=== PATIENT | male | born 2000 | race Caucasian/White ===

== ENCOUNTER → 2018-02-28 | Outpatient (CLI) | payer BC ==
[2018-02-28 09:33] LABS: ALBUMIN 3.7 g/dL (3.4-5.0); ANION GAP 5 mmol/L (5-15); CALCIUM 8.3 mg/dL (8.5-10.1); CHLORIDE 106 mmol/L (98-107)
[2018-02-28 09:41] LABS: MEAN CORPUSCULAR HEMOGLOBIN 16.3 pg (27.5-34.5); MEAN CORPUSCULAR VOLUME 56.3 fL (81-97); MEAN PLATELET VOLUME 7.3 fL (7.4-10.4); PLATELET COUNT 419 x10^3/uL (130-400); RED BLOOD COUNT 2.84 x10^6/uL (4.38-5.82); RED CELL DISTRIBUTION WIDTH 23.5 % (9.4-14.8)
[2018-02-28 09:42] LABS: MEAN CORPUSCULAR HGB CONC 28.9 g/dL (33.2-36.2)
[2018-02-28 09:59] LABS: % IRON SATURATION 2 % (20-55); ALANINE AMINOTRANSFERASE 16 U/L (12-78); ALKALINE PHOSPHATASE 91 U/L (45-117); BILIRUBIN,TOTAL 0.6 mg/dL (0.2-1.0); CREATININE 0.65 mg/dL (0.7-1.3); IRON LEVEL 12 mcg/dL (65-175); T4 (THYROXINE) 9.1 mcg/dL (4.5-12.1); TOTAL IRON BINDING CAPACITY 592 mcg/dL (250-450)
[2018-02-28 10:00] LABS: FOLATE LEVEL > 20.0 ng/mL (3.1-17.5)
[2018-02-28 10:16] LABS: MD YES
[2018-02-28 10:18] LABS: <PLATELET ESTIMATE> ADEQUATE; <PLT MORPHOLOGY> NORMAL PLT MORPH; <RBC MORPHOLOGY> NORMAL; LYMPH#(MANUAL) 0.37 x10^3/uL (1-6.1); LYMPHS% (MANUAL) 8 % (22-44); MONOS#(MANUAL) 0.46 x10^3/uL (0.3-2.7); MONOS% (MANUAL) 10 % (2-9); NRBC % (MANUAL) 2 % (0-1); SEG#(MANUAL) 3.77 x10^3/uL (1.8-8); SEGS% (MANUAL) 82 % (42-75)
[2018-02-28 10:20] LABS: ANISOCYTOSIS 2+; HYPOCHROMIA 2+; MICROCYTOSIS 3+
[2018-02-28 10:21] LABS: OVALOCYTES 1+; TEAR DROPS 1+
== END | disposition home or self-care (01) ==
LOC: LAB 09:04
PROVIDERS: ATTEND Nurse Practitioner Family
DX: R01.1 Cardiac murmur, unspecified (principal); R23.1 Pallor; R53.83 Other fatigue; R63.6 Underweight
CPT/HCPCS: 36415; 80053; 82607; 82746; 83540; 83550; 83735; 84436; 84443; 85025

== ENCOUNTER 2019-04-25 08:36 | Outpatient (CLI) | payer BC | END 2019-04-25 23:59 | disposition home or self-care (01) | LOC: CFH 08:36 | PROVIDERS: ATTEND Internal Medicine Gastroenterology | DX: Z02.9 Encounter for administrative examinations, unspecified (principal) ==